=== PATIENT | female | born 1975 | race African-American/Black ===

== ENCOUNTER 2019-03-03 08:44 | Emergency (ER) | payer OTHER ==
[~2019-03-03] VITALS: Ht 154.9 cm; Wt 83.9 kg
[2019-03-03] MEDS ORDERED: TYLENOL EXTRA500 MG PO (09:47)
[2019-03-03] MEDS ORDERED: BUTALB-APAP-CA1 EACH PO (10:51)
[2019-03-03 11:00] VITALS: BP 134/71
== END 2019-03-03 11:03 | disposition home or self-care (01) ==
LOC: M.ERS 08:44
DX: G43.909 Migraine, unspecified, not intractable, without status migrainosus (principal); J45.909 Unspecified asthma, uncomplicated